=== PATIENT | male | born 1950 | race Caucasian/White ===

== ENCOUNTER 2021-04-25 18:48 | Inpatient (IN) ==
[2021-04-25 20:18] LABS: ABS Basophils 0.1 10^3/ul (0-0.2); ABS Eosinophils 0.1 10^3/ul (0-0.6); ABS Lymphocytes 0.9 10^3/ul (1.0-4.8); ABS Monocytes 1.1 10^3/ul (0-0.8); ABS Neutrophils 9.7 10^3/ul (1.5-7.7); Eosinophil % 0.9 %; Hematocrit 35 % (42-52); Lymphocyte % 7.2 %; Mean Corpuscular HGB Conc 35 g/dL (31-36); Mean Corpuscular Hemoglobin 30 pg (27-31); Mean Corpuscular Volume 87 fL (80-94); Mean Platelet Volume 7.9 fL (7.4-10.4); Platelet Count 379 10^3/uL (150-450); Red Blood Count 4.01 10^6 /uL (4.18-5.48); Red Cell Distribution Width 13 % (10-15); White Blood Count 11.8 10^3/uL (3.5-10.8)
[2021-04-25 20:35] LABS: ALT 22 U/L (7-52); AST 17 U/L (13-39); Albumin 3.7 g/dL (3.2-5.2); Alkaline Phosphatase 154 U/L (35-149); Anion Gap 7 mmol/L (2-11); Blood Urea Nitrogen 9 mg/dL (6-24); C Reactive Protein 206.66 mg/L (<8.01); CO2 Carbon Dioxide 26 mmol/L (22-32); Calcium 9.8 mg/dL (8.6-10.3); Chloride 100 mmol/L (101-111); Globulin 3.8 g/dL (2-4); Glucose 102 mg/dL (70-100); Potassium 3.8 mmol/L (3.5-5.0); Sodium 133 mmol/L (135-145); Total Protein 7.5 g/dL (6.4-8.9); eGFR CKD-EPI 79.1 (>60)
[2021-04-25 20:45] LABS: INR 1.35 (0.86-1.15)
[2021-04-25] MEDS ORDERED: Magnesium Hydroxide LIQ 30 ML UDC PO PRN (21:01)
[2021-04-25 21:27] LABS: Total Iron Binding Capacity 235 mcg/dL (250-450); Transferrin 168 mg/dL (203-362)
[2021-04-25 21:47] LABS: Ferritin 247.9 ng/mL (24-336)
[2021-04-25 21:48] LABS: % Iron Saturation 9 % (15-55); Iron < 20 ug/dL (50-212); Unsaturated Iron Binding 215 ug/dL
[2021-04-25] MEDS ORDERED: D5W 1/2 NS 1000 ml BAG 1,000 ML IV SCH (22:00)
[2021-04-25] MEDS: Ciprofloxacin 400mg IVPREMIX 400 MG/200 ML BAG IVPB SCH (22:16)
[2021-04-25] MEDS: metroNIDAZOLE IV 500 MG/100ML 500 MG/100 ML BAG IVPB SCH (23:59)
[2021-04-26] MEDS: metroNIDAZOLE IV 500 MG/100ML 500 MG/100 ML BAG IVPB SCH ×3 (06:06→22:25)
[2021-04-26] MEDS: Ciprofloxacin 400mg IVPREMIX 400 MG/200 ML BAG IVPB SCH ×2 (09:48→20:49)
[2021-04-26] MEDS: Heparin 5000 UNITS/ML 1 mL VIAL SUBCUT SCH ×2 (13:46→22:25)
[2021-04-26] MEDS ORDERED: Polyethylene Glycol 3350 17 GM PACKET PO PRN (15:57)
[2021-04-26] MEDS ORDERED: Senna TAB 8.6 mg TAB PO PRN (15:57)
[2021-04-27] MEDS: metroNIDAZOLE IV 500 MG/100ML 500 MG/100 ML BAG IVPB SCH (05:41)
[2021-04-27 05:47] LABS: ABS Eosinophils 0.3 10^3/ul (0-0.6); ABS Lymphocytes 0.8 10^3/ul (1.0-4.8); ABS Monocytes 0.8 10^3/ul (0-0.8); ABS Neutrophils 7.5 10^3/ul (1.5-7.7); Eosinophil % 3.2 %; Hematocrit 36 % (42-52); Hemoglobin 12.4 g/dL (14.0-18.0); Lymphocyte % 8.7 %; Mean Corpuscular HGB Conc 34 g/dL (31-36); Mean Corpuscular Hemoglobin 30 pg (27-31); Mean Corpuscular Volume 87 fL (80-94); Mean Platelet Volume 8.3 fL (7.4-10.4); Platelet Count 426 10^3/uL (150-450); Red Blood Count 4.16 10^6 /uL (4.18-5.48); Red Cell Distribution Width 13 % (10-15); White Blood Count 9.5 10^3/uL (3.5-10.8)
[2021-04-27] MEDS: Heparin 5000 UNITS/ML 1 mL VIAL SUBCUT SCH (05:52)
[2021-04-27 06:14] LABS: Calcium 9.8 mg/dL (8.6-10.3); Potassium 4.1 mmol/L (3.5-5.0); eGFR CKD-EPI 68.5 (>60)
[2021-04-27] MEDS: Ciprofloxacin 400mg IVPREMIX 400 MG/200 ML BAG IVPB SCH (09:06)
[2021-04-27 11:52] VITALS: BP 128/75
== END 2021-04-27 14:50 | disposition home or self-care (01) | DRG 392 ==
LOC: SSU 18:48 → SUATTDRO 18:48
PROVIDERS: ADMIT Surgery; ATTEND Internal Medicine